=== PATIENT | male | born 1940 | race Caucasian/White ===

== ENCOUNTER 2019-12-10 14:15 | Inpatient (IN) | payer OTHER ==
[~2019-12-10] VITALS: Ht 170.2 cm; Wt 84.8 kg
[2019-12-10 14:23] VITALS: Ht 170.2 cm; Wt 84.8 kg
[2019-12-10 15:51] LABS: BASOPHIL % 0.3 % (0-2); PLATELET COUNT 226 x10^3mcL (130-400)
[2019-12-10 15:53] LABS: RED CELL DISTRIBUTION WIDTH 15.9 % (11.5-14.5)
[2019-12-10 16:01] LABS: CALCIUM 8.4 mg/dL (8.5-10.1); CARBON DIOXIDE 26.6 mmol/L (21-32); CHLORIDE SERUM 108 mmol/L (98-107); CREATININE SERUM 1.2 mg/dL (0.7-1.3); GLUCOSE SERUM 97 mg/dL (74-106); POTASSIUM SERUM 4.3 mmol/L (3.5-5.1); SODIUM SERUM 143 mmol/L (136-145)
[2019-12-10 16:11] LABS: ALBUMIN 3.4 g/dL (3.4-5.0); ALKALINE PHOSPHATASE 197 U/L (46-116); ALT/SGPT 66 U/L (16-63); AST/SGOT 35 U/L (15-37); BILIRUBIN TOTAL 0.5 mg/dL (0.20-1.00)
[2019-12-10 16:12] LABS: CHOLESTEROL 119 mg/dL (<200); HDL CHOLESTEROL 33 mg/dL (40-60)
[2019-12-10 16:15] LABS: T3 TOTAL 0.99 ng/mL
[2019-12-10 16:32] LABS: FREE T4 1.12 ng/dL (0.76-1.46); FREE THYROXINE INDEX 2.8 ug/dL (1.4-4.5); T4(THYROXINE) 8.1 ug/dL (4.7-13.3)
[2019-12-10 17:13] VITALS: BP 113/81
[2019-12-10 17:40] LABS: MAGNESIUM 2.4 mg/dL (1.8-2.4)
[2019-12-10 17:41] LABS: CHOLESTEROL/HDL RATIO 3.6
[2019-12-10] MEDS ORDERED: BENZONATATE150 MG PO (18:34)
[2019-12-10] MEDS ORDERED: IPRATROPIUM BR2.5 ML IH (18:34)
[2019-12-10] MEDS ORDERED: ACID REDUCER20 MG PO (18:34)
[2019-12-10] MEDS ORDERED: XOP0.63 NEB (18:35)
[2019-12-10] MEDS ORDERED: VITAMIN D310 MCG/1 M PO (18:35)
[2019-12-10] MEDS ORDERED: BRIMONIDINE TART5 M1 OU (18:35)
[2019-12-10] MEDS ORDERED: KEPPRA100 MG/M1 PO (18:35)
[2019-12-10] MEDS ORDERED: VYZULTA5 ML OU (18:35)
[2019-12-10] MEDS ORDERED: MOMETASONE FUR500 ML (18:36)
[2019-12-10] MEDS ORDERED: COLACE CLEAR50 MG PO (18:36)
[2019-12-10] MEDS ORDERED: DORZOLAMIDE 2%10 ML OP (18:36)
[2019-12-10 18:49] LABS: microscopic required? NO
[2019-12-10 19:01] LABS: urine erythrocyte NEGATIVE (NEGATIVE)
[2019-12-10 20:29] VITALS: BP 116/69
[2019-12-11 00:09] LABS: AMPHETAMINE QUAL UR NONE DETECTED (See below)
[2019-12-11 06:12] LABS: PLATELET COUNT 226 x10^3mcL (130-400)
[2019-12-11 06:15] LABS: BASOPHIL % 0 % (0-2); RED CELL DISTRIBUTION WIDTH 16.1 % (11.5-14.5)
[2019-12-11 07:43] LABS: CALCIUM 8.3 mg/dL (8.5-10.1); CARBON DIOXIDE 26.2 mmol/L (21-32); CHLORIDE SERUM 108 mmol/L (98-107); CREATININE SERUM 1.4 mg/dL (0.7-1.3); GLUCOSE SERUM 137 mg/dL (74-106); POTASSIUM SERUM 5.1 mmol/L (3.5-5.1); SODIUM SERUM 143 mmol/L (136-145)
[2019-12-11 08:12] LABS: IRON 46 ug/dL (65-170); TOTAL IRON BINDING CAPACITY 328 ug/dL (250-450)
[2019-12-11 08:41] VITALS: BP 111/64
[2019-12-11 12:58] VITALS: BP 101/65
[2019-12-11 16:18] VITALS: BP 106/61
[2019-12-11 20:45] VITALS: BP 102/65
[2019-12-12 05:35] LABS: PLATELET COUNT 271 x10^3mcL (130-400)
[2019-12-12 05:49] LABS: CALCIUM 8.3 mg/dL (8.5-10.1); CARBON DIOXIDE 27.2 mmol/L (21-32); CHLORIDE SERUM 109 mmol/L (98-107); CREATININE SERUM 1.7 mg/dL (0.7-1.3); GLUCOSE SERUM 172 mg/dL (74-106); POTASSIUM SERUM 4.4 mmol/L (3.5-5.1); SODIUM SERUM 144 mmol/L (136-145)
[2019-12-12 05:51] VITALS: BP 103/70
[2019-12-12 05:51] LABS: BASOPHIL % 0 % (0-2); RED CELL DISTRIBUTION WIDTH 16.1 % (11.5-14.5)
[2019-12-12 08:38] VITALS: BP 105/65
[2019-12-12 15:35] VITALS: BP 96/54
[2019-12-12 16:02] VITALS: BP 96/54
[2019-12-12 17:32] VITALS: BP 99/60
[2019-12-12 20:22] VITALS: BP 97/63
[2019-12-13 00:21] VITALS: BP 94/60
[2019-12-13 05:52] VITALS: BP 100/58
[2019-12-13 05:52] LABS: PLATELET COUNT 275 x10^3mcL (130-400)
[2019-12-13 06:02] LABS: ALKALINE PHOSPHATASE 150 U/L (46-116); ALT/SGPT 47 U/L (16-63); AST/SGOT 19 U/L (15-37); CALCIUM 8.9 mg/dL (8.5-10.1); CARBON DIOXIDE 27.8 mmol/L (21-32); CHLORIDE SERUM 112 mmol/L (98-107); CREATININE SERUM 1.8 mg/dL (0.7-1.3); GLUCOSE SERUM 159 mg/dL (74-106); POTASSIUM SERUM 4.7 mmol/L (3.5-5.1); SODIUM SERUM 148 mmol/L (136-145)
[2019-12-13 06:05] LABS: ALBUMIN 3.1 g/dL (3.4-5.0)
[2019-12-13 06:14] LABS: BILIRUBIN DIRECT 0.13 mg/dL (0.0-0.2); BILIRUBIN TOTAL 0.28 mg/dL (0.20-1.00)
[2019-12-13 06:20] LABS: ALBUMIN 3.1 g/dL (3.4-5.0); TOTAL PROTEIN, SERUM 9.8 g/dL (6.4-8.2)
[2019-12-13 06:46] LABS: BASOPHIL % 0 % (0-2); RED CELL DISTRIBUTION WIDTH 16.8 % (11.5-14.5)
[2019-12-13 07:53] VITALS: BP 104/60
[2019-12-13 11:40] VITALS: BP 117/75
[2019-12-13 16:12] VITALS: BP 115/61
[2019-12-13 20:14] VITALS: BP 113/65
[2019-12-14 05:59] LABS: BASOPHIL % 0.4 % (0-2); PLATELET COUNT 283 x10^3mcL (130-400)
[2019-12-14 06:15] VITALS: BP 130/84
[2019-12-14 06:20] LABS: CALCIUM 8.6 mg/dL (8.5-10.1); CARBON DIOXIDE 31.3 mmol/L (21-32); CHLORIDE SERUM 112 mmol/L (98-107); CREATININE SERUM 1.2 mg/dL (0.7-1.3); GLUCOSE SERUM 125 mg/dL (74-106); SODIUM SERUM 147 mmol/L (136-145)
[2019-12-14 09:25] VITALS: BP 129/78
[2019-12-14 09:55] VITALS: BP 129/78
[2019-12-14 14:05] VITALS: BP 128/85
[2019-12-14 17:58] VITALS: BP 133/82
[2019-12-14 22:23] VITALS: BP 137/62
[2019-12-15 06:43] VITALS: BP 137/82
[2019-12-15 09:09] VITALS: BP 121/64
[2019-12-15 13:27] VITALS: BP 120/72
[2019-12-15 14:17] VITALS: BP 137/76
== END 2019-12-15 16:31 | disposition other institution (70) | DRG 291 ==
LOC: ED 14:15 → DU 17:08
PROVIDERS: Emergency Medicine; Internal Medicine Cardiovascular Disease; Internal Medicine Gastroenterology; ADMIT Internal Medicine
PROC: 0DB18ZX Excision of Upper Esophagus, Via Natural or Artificial Opening Endoscopic, Diagnostic (ICD-10-PCS; principal; 2019-12-14 14:00)
PROC: 0DB68ZX Excision of Stomach, Via Natural or Artificial Opening Endoscopic, Diagnostic (ICD-10-PCS; 2019-12-14 14:00)
DX: I13.0 Hypertensive heart and chronic kidney disease with heart failure and stage 1 through stage 4 chronic kidney disease, or unspecified chronic kidney disease (principal); J96.01 Acute respiratory failure with hypoxia; J15.9 Unspecified bacterial pneumonia; I50.41 Acute combined systolic (congestive) and diastolic (congestive) heart failure; N17.9 Acute kidney failure, unspecified; N40.0 Benign prostatic hyperplasia without lower urinary tract symptoms; I48.91 Unspecified atrial fibrillation; G20 Parkinson's disease; F02.80 Dementia in other diseases classified elsewhere, unspecified severity, without behavioral disturbance, psychotic disturbance, mood disturbance, and anxiety; G40.909 Epilepsy, unspecified, not intractable, without status epilepticus; J43.9 Emphysema, unspecified; N18.9 Chronic kidney disease, unspecified; D63.8 Anemia in other chronic diseases classified elsewhere; H40.9 Unspecified glaucoma; K74.60 Unspecified cirrhosis of liver; Z79.01 Long term (current) use of anticoagulants; Z79.899 Other long term (current) drug therapy
CPT/HCPCS: 36600; 43235; 83880; 84439; 87804; G0378; J1160; J1200; J1610; J1644; J1940; J1956; J2250; J2270; J2310; J2405; J2543; J2920; J2930; J3010; J3490; J7030; J7040; J7050; Q0092

== ENCOUNTER 2020-01-20 11:04 | Inpatient (IN) | payer OTHER ==
[~2020-01-20] VITALS: Ht 170.2 cm; Wt 81.6 kg
[~2020-01-20 11:04] MED LIST: BENZONATATE150 MG PO; BRIMONIDINE TART5 M1 OU; COLACE CLEAR50 MG PO; DORZOLAMIDE 2%10 ML OU; IPRATROPIUM BR2.5 ML IH; MOMETASONE FUR500 ML INH; VYZULTA5 ML OU; XOP0.63 NEB
[2020-01-20 11:11] VITALS: Ht 170.2 cm; Wt 81.6 kg
[2020-01-20 12:23] LABS: BASOPHIL % 0.6 % (0-2); PLATELET COUNT 212 x10^3mcL (130-400)
[2020-01-20 12:24] LABS: RED CELL DISTRIBUTION WIDTH 15.1 % (11.5-14.5)
[2020-01-20 12:28] LABS: CARBON DIOXIDE 31.4 mmol/L (21-32); CHLORIDE SERUM 107 mmol/L (98-107); CREATININE SERUM 1.2 mg/dL (0.7-1.3); GLUCOSE SERUM 109 mg/dL (74-106); POTASSIUM SERUM 5.1 mmol/L (3.5-5.1); SODIUM SERUM 144 mmol/L (136-145)
[2020-01-20 12:38] LABS: ALBUMIN 3.5 g/dL (3.4-5.0); ALKALINE PHOSPHATASE 126 U/L (46-116); ALT/SGPT 30 U/L (16-63); AST/SGOT 29 U/L (15-37); BILIRUBIN TOTAL 0.4 mg/dL (0.20-1.00); TOTAL PROTEIN, SERUM 7.2 g/dL (6.4-8.2)
[2020-01-20] MEDS ORDERED: ELIQUIS2.5 MG PO (13:27)
[2020-01-20] MEDS ORDERED: MASON NATURAL1000 IU PO (13:31)
[2020-01-20] MEDS ORDERED: LANOXIN0.125 MG PO (13:32)
[2020-01-20] MEDS ORDERED: CARDIZEM30 MG PO (13:33)
[2020-01-20] MEDS ORDERED: KEPPRA750 MG PO (13:35)
[2020-01-20] MEDS ORDERED: LOPRESSOR50 M1 PO (13:36)
[2020-01-20] MEDS ORDERED: ACID REDUCER20 MG PO (13:38)
[2020-01-20] MEDS ORDERED: XOPENEX HF0.045 MG/1 INH (13:38)
[2020-01-20 15:42] LABS: MAGNESIUM 2.3 mg/dL (1.8-2.4)
[2020-01-20 15:43] LABS: CHOLESTEROL/HDL RATIO 3.3
[2020-01-20 15:51] VITALS: BP 121/79
[2020-01-20 18:00] VITALS: BP 98/66
[2020-01-20 20:54] VITALS: BP 110/67
[2020-01-20 22:26] LABS: microscopic required? NO
[2020-01-20 22:41] LABS: urine erythrocyte NEGATIVE (NEGATIVE)
[2020-01-20 22:53] LABS: AMPHETAMINE QUAL UR NONE DETECTED (See below)
[2020-01-21] VITALS (7 sets, daily range): BP systolic 94–122; BP diastolic 58–87
[2020-01-21 06:10] LABS: CARBON DIOXIDE 31.9 mmol/L (21-32); CHLORIDE SERUM 106 mmol/L (98-107); CREATININE SERUM 1.2 mg/dL (0.7-1.3); GLUCOSE SERUM 108 mg/dL (74-106); POTASSIUM SERUM 5.2 mmol/L (3.5-5.1); SODIUM SERUM 142 mmol/L (136-145)
[2020-01-21 06:42] LABS: BASOPHIL % 0.6 % (0-2); PLATELET COUNT 219 x10^3mcL (130-400); RED CELL DISTRIBUTION WIDTH 15.6 % (11.5-14.5)
[2020-01-22] VITALS (9 sets, daily range): BP systolic 77–115; BP diastolic 47–74
[2020-01-22 07:19] LABS: PLATELET COUNT 244 x10^3mcL (130-400)
[2020-01-22 07:38] LABS: CALCIUM 9.1 mg/dL (8.5-10.1); CARBON DIOXIDE 27.2 mmol/L (21-32); CHLORIDE SERUM 104 mmol/L (98-107); CREATININE SERUM 1.2 mg/dL (0.7-1.3); GLUCOSE SERUM 106 mg/dL (74-106); POTASSIUM SERUM 4.4 mmol/L (3.5-5.1); SODIUM SERUM 140 mmol/L (136-145)
[2020-01-22 07:42] LABS: BASOPHIL % 0 % (0-2); RED CELL DISTRIBUTION WIDTH 15.1 % (11.5-14.5)
[2020-01-22] MEDS ORDERED: KEPPRA100 MG/M1 PO (11:19)
[2020-01-22] MEDS ORDERED: VITAMIN D310 MCG/1 M PO (11:19)
[2020-01-22] MEDS ORDERED: ACID REDUCER20 MG PO (11:20)
== END 2020-01-22 17:01 | disposition other institution (70) | DRG 309 ==
LOC: ED 11:04 → DU 13:39
PROVIDERS: Emergency Medicine; ADMIT Internal Medicine
DX: I48.20 Chronic atrial fibrillation, unspecified (principal); K92.0 Hematemesis; I50.40 Unspecified combined systolic (congestive) and diastolic (congestive) heart failure; J44.1 Chronic obstructive pulmonary disease with (acute) exacerbation; N40.0 Benign prostatic hyperplasia without lower urinary tract symptoms; I25.10 Atherosclerotic heart disease of native coronary artery without angina pectoris; N18.9 Chronic kidney disease, unspecified; G20 Parkinson's disease; R07.89 Other chest pain; K76.89 Other specified diseases of liver; K27.9 Peptic ulcer, site unspecified, unspecified as acute or chronic, without hemorrhage or perforation; F02.80 Dementia in other diseases classified elsewhere, unspecified severity, without behavioral disturbance, psychotic disturbance, mood disturbance, and anxiety; I25.2 Old myocardial infarction; Z68.28 Body mass index [BMI] 28.0-28.9, adult; Z79.01 Long term (current) use of anticoagulants; Z86.19 Personal history of other infectious and parasitic diseases
CPT/HCPCS: 83880; A9500; C9113; G0378; J1160; J1450; J1940; J2270; J2785; J3490; J7030; J7040; J7050; Q0092

== ENCOUNTER 2020-04-12 12:08 | Inpatient (IN) | payer OTHER, SELFPAY ==
[~2020-04-12] VITALS: Ht 172.7 cm; Wt 85.0 kg
[~2020-04-12 12:08] MED LIST changes: +ACID REDUCER20 MG PO; +CARDIZEM30 MG PO; +ELIQUIS2.5 MG PO; +KEPPRA100 MG/M1 PO; +KEPPRA750 MG PO; +LANOXIN0.125 MG PO; +LOPRESSOR50 M1 PO; +MASON NATURAL1000 IU PO; +VITAMIN D310 MCG/1 M PO; +XOPENEX HF0.045 MG/1 INH
[2020-04-12 12:14] VITALS: Ht 172.7 cm; Wt 85.0 kg
[2020-04-12 13:06] LABS: BASOPHIL % 0.5 % (0-2); PLATELET COUNT 253 x10^3mcL (130-400)
[2020-04-12 13:15] LABS: RED CELL DISTRIBUTION WIDTH 16.9 % (11.5-14.5)
[2020-04-12 13:27] LABS: CALCIUM 8.6 mg/dL (8.5-10.1); CARBON DIOXIDE 28.7 mmol/L (21-32); CHLORIDE SERUM 104 mmol/L (98-107); CREATININE SERUM 1.4 mg/dL (0.7-1.3); GLUCOSE SERUM 101 mg/dL (74-106); POTASSIUM SERUM 4.4 mmol/L (3.5-5.1); SODIUM SERUM 141 mmol/L (136-145)
[2020-04-12 13:32] LABS: ALBUMIN 3.8 g/dL (3.4-5.0); ALKALINE PHOSPHATASE 91 U/L (46-116); ALT/SGPT 26 U/L (16-63); AST/SGOT 23 U/L (15-37); BILIRUBIN TOTAL 0.5 mg/dL (0.20-1.00); C REACTIVE PROTEIN 0.5 mg/dL (<=0.9); LACTIC DEHYDROGENASE (LDH) 224 U/L (100-190); TOTAL PROTEIN, SERUM 7.3 g/dL (6.4-8.2)
[2020-04-12 15:42] VITALS: BP 118/96
[2020-04-12 16:42] LABS: CHOLESTEROL/HDL RATIO 3.1
[2020-04-12 16:54] LABS: MAGNESIUM 2.1 mg/dL (1.8-2.4)
[2020-04-12 21:50] VITALS: BP 100/66
[2020-04-13 04:50] LABS: microscopic required? NO
[2020-04-13 05:01] VITALS: BP 95/57
[2020-04-13 05:27] LABS: UA SPECIFIC GRAVITY 1.025 (1.005-1.035); urine erythrocyte NEGATIVE (NEGATIVE)
[2020-04-13 07:32] LABS: BASOPHIL % 0.6 % (0-2); PLATELET COUNT 235 x10^3mcL (130-400)
[2020-04-13 07:55] LABS: CALCIUM 8.9 mg/dL (8.5-10.1); CARBON DIOXIDE 30.8 mmol/L (21-32); CHLORIDE SERUM 103 mmol/L (98-107); CREATININE SERUM 1.5 mg/dL (0.7-1.3); GLUCOSE SERUM 103 mg/dL (74-106); POTASSIUM SERUM 5.3 mmol/L (3.5-5.1); SODIUM SERUM 140 mmol/L (136-145)
[2020-04-13 08:04] LABS: PATH REVIEW for HEMA NO
[2020-04-13 09:56] VITALS: BP 106/63
[2020-04-13 13:25] VITALS: BP 107/64
[2020-04-13 18:16] VITALS: BP 116/72
[2020-04-13 21:25] VITALS: BP 98/72
[2020-04-14 06:25] VITALS: BP 109/66
[2020-04-14 06:57] LABS: PLATELET COUNT 259 x10^3mcL (130-400)
[2020-04-14 07:08] LABS: BASOPHIL % 0 % (0-2); RED CELL DISTRIBUTION WIDTH 16.7 % (11.5-14.5)
[2020-04-14 08:25] LABS: CALCIUM 8.6 mg/dL (8.5-10.1); CARBON DIOXIDE 26.6 mmol/L (21-32); CHLORIDE SERUM 101 mmol/L (98-107); CREATININE SERUM 1.4 mg/dL (0.7-1.3); GLUCOSE SERUM 120 mg/dL (74-106); POTASSIUM SERUM 4.8 mmol/L (3.5-5.1); SODIUM SERUM 139 mmol/L (136-145)
[2020-04-14 08:58] VITALS: BP 105/57
[2020-04-14 12:38] VITALS: BP 107/63
[2020-04-14 17:45] VITALS: BP 105/68
[2020-04-14 21:55] VITALS: BP 99/68
[2020-04-15 04:54] VITALS: BP 95/70
[2020-04-15 07:34] LABS: PLATELET COUNT 276 x10^3mcL (130-400)
[2020-04-15 07:57] LABS: CALCIUM 8.9 mg/dL (8.5-10.1); CARBON DIOXIDE 30.5 mmol/L (21-32); CHLORIDE SERUM 102 mmol/L (98-107); CREATININE SERUM 1.5 mg/dL (0.7-1.3); GLUCOSE SERUM 124 mg/dL (74-106); POTASSIUM SERUM 4.5 mmol/L (3.5-5.1); SODIUM SERUM 137 mmol/L (136-145)
[2020-04-15 08:07] LABS: BASOPHIL % 0 % (0-2); RED CELL DISTRIBUTION WIDTH 16.7 % (11.5-14.5)
[2020-04-15 09:12] VITALS: BP 108/70
[2020-04-15 13:18] VITALS: BP 107/76
[2020-04-15 17:04] VITALS: BP 105/66
[2020-04-16 06:20] VITALS: BP 95/66
[2020-04-16 09:09] VITALS: BP 110/72
[2020-04-16 17:26] VITALS: BP 109/78
[2020-04-16 21:22] VITALS: BP 99/67
[2020-04-17 09:38] VITALS: BP 98/69
[2020-04-17 13:11] VITALS: BP 94/63
[2020-04-17 14:47] VITALS: BP 100/67
== END 2020-04-17 19:29 | disposition other institution (70) | DRG 291 ==
LOC: ED 12:08 → DU 14:03
PROVIDERS: Emergency Medicine; Internal Medicine; ADMIT Internal Medicine; ATTEND Internal Medicine
DX: I13.0 Hypertensive heart and chronic kidney disease with heart failure and stage 1 through stage 4 chronic kidney disease, or unspecified chronic kidney disease (principal); I50.33 Acute on chronic diastolic (congestive) heart failure; J18.9 Pneumonia, unspecified organism; J96.90 Respiratory failure, unspecified, unspecified whether with hypoxia or hypercapnia; J44.0 Chronic obstructive pulmonary disease with (acute) lower respiratory infection; I24.9 Acute ischemic heart disease, unspecified; R07.89 Other chest pain; I48.91 Unspecified atrial fibrillation; J44.9 Chronic obstructive pulmonary disease, unspecified; F03.90 Unspecified dementia, unspecified severity, without behavioral disturbance, psychotic disturbance, mood disturbance, and anxiety; R56.9 Unspecified convulsions; N40.0 Benign prostatic hyperplasia without lower urinary tract symptoms; K74.0 Hepatic fibrosis; G20 Parkinson's disease; F02.80 Dementia in other diseases classified elsewhere, unspecified severity, without behavioral disturbance, psychotic disturbance, mood disturbance, and anxiety; Z20.828 Contact with and (suspected) exposure to other viral communicable diseases; N18.9 Chronic kidney disease, unspecified; H40.9 Unspecified glaucoma; D63.8 Anemia in other chronic diseases classified elsewhere; I25.10 Atherosclerotic heart disease of native coronary artery without angina pectoris; I48.0 Paroxysmal atrial fibrillation; K21.9 Gastro-esophageal reflux disease without esophagitis; I25.2 Old myocardial infarction; Z79.899 Other long term (current) drug therapy; Z90.49 Acquired absence of other specified parts of digestive tract
CPT/HCPCS: 83880; 85378; 87804; G0378; J0456; J0696; J1100; J1940; J2270; J2405; J3490; J7030; J7040; Q0092; U0003-CS